=== PATIENT | male | born 1960 | race American Indian/Alaskan Native ===

== ENCOUNTER 2018-07-05 09:28 | Inpatient (IN) | payer SELFPAY ==
[2018-07-05] MEDS ORDERED: ZOSYN/NS 4.5GM/100ML 4.5 GM/100 ML VIAL IV ONE (10:41)
[2018-07-05] MEDS ORDERED: SUBLIMAZE IV ONE (10:41)
[2018-07-05] MEDS ORDERED: NACL 0.9% 1000 ML 1,000 ML IV ONE (10:41)
[2018-07-05] MEDS ORDERED: ZOFRAN IV ONE (10:41)
--- NOTE | 2018-07-05 10:43 | Emergency Department Report ---
HPI - General Chief Complaint: Extremity Injury, Upper Time Seen by Provider: 07/05/18 10:32 - HPI HPI: Room 6 The patient is a 58-year-old male presents with a chief complaint left hand pain and swelling. The patient states he is noticed pain and swelling to the dorsum of his left hand for the past 2 days. Any preceding trauma or seen any insect bites. Patient states the hand is continuing to swell. Patient admits to subjective fever at home. Patient denies previous episodes of left hand swelling. The patient gives his pain a score of 9/10. The patient states he is right-handed Location: Left hand Duration: 2 days Quality: Pain Severity:9/10 Modifying factors: [see above] Context: [see above] Mode of transportation: [not driving] ED Past Medical Hx - Past Medical History Hx Hypertension: Yes - Surgical History Hx Open Heart Surgery: Yes (3v CABG 2003) - Family History Family history: no significant - Social History Smoking Status: Current Every Day Smoker (1 pack per day) Substance Use Type: None (denies illicit drug use), Alcohol (rarely) ED Review of Systems ROS: Stated complaint: LT HAND PAIN/SWOLLEN Other details as noted in HPI Constitutional: fever (subjective) Eyes: denies: eye pain ENT: denies: throat pain Respiratory: no symptoms reported Cardiovascular: denies: chest pain Endocrine: no symptoms reported Gastrointestinal: denies: abdominal pain Musculoskeletal: joint swelling, myalgia Skin: rash, lesions Neurological: denies: headache Physical Exam - Physical Exam Vital Signs: Vital Signs 07/05/18 09:35 Temperature 97.8 F Pulse Rate 61 Respiratory 20 Rate Blood Pressure 163/91 O2 Sat by Pulse 100 Oximetry Physical Exam: GENERAL: The patient is well-developed well-nourished male sitting on stretcher not appear to be in acute distress. [] HEENT: Normocephalic. Atraumatic. Extraocular motions are intact. Patient has moist mucous membranes. NECK: Supple. Trachea midline CHEST/LUNGS: There is no respiratory distress noted. HEART/CARDIOVASCULAR: Regular. There is no tachycardia. Normal capillary refill fingers of left hand ABDOMEN: There is no abdominal distention. SKIN: There is marked edema and erythema of the left hand. There is no diaphoresis. NEURO: The patient is awake, alert, and oriented. The patient is cooperative. The patient has normal speech MUSCULOSKELETAL: There is no tenderness to palpation of the flexor tendons of the left hand. There is tenderness to palpation of the dorsum of the left hand LYMPH: There is tender left axillary lymphadenopathy ED Course Vital Signs 07/05/18 09:35 Temperature 97.8 F Pulse Rate 61 Respiratory 20 Rate Blood Pressure 163/91 O2 Sat by Pulse 100 Oximetry ED Medical Decision Making - Lab Data Result diagrams: 07/05/18 10:43 07/05/18 10:43 Laboratory Tests 07/05/18 07/05/18 07/05/18 10:43 10:43 10:43 WBC 10.5 RBC 4.99 Hgb 13.7 Hct 42.0 MCV 84 MCH 27 L MCHC 33 RDW 15.2 Plt Count 290 Lymph % (Auto) 20.3 [place] % (Auto) 8.4 H Eos % (Auto) 1.4 Baso % (Auto) 0.6 Lymph # 2.1 [place] # 0.9 H Eos # 0.2 Baso # 0.1 Seg Neutrophils % 69.3 Seg Neutrophils # 7.3 ESR PT 12.5 INR 0.88 APTT 26.2 Sodium 133 L Potassium 4.6 Chloride 93.6 L Carbon Dioxide 27 Anion Gap 17 BUN 8 L Creatinine 0.9 Estimated GFR > 60 BUN/Creatinine Ratio 9 Glucose 87 Calcium 9.6 C-Reactive Protein 07/05/18 07/05/18 10:43 10:43 WBC RBC Hgb Hct MCV MCH MCHC RDW Plt Count Lymph % (Auto) [place] % (Auto) Eos % (Auto) Baso % (Auto) Lymph # [place] # Eos # Baso # Seg Neutrophils % Seg Neutrophils # ESR 37 PT INR APTT Sodium Potassium Chloride Carbon Dioxide Anion Gap BUN Creatinine Estimated GFR BUN/Creatinine Ratio Glucose Calcium C-Reactive Protein 6.20 H - Radiology Data Radiology results: image reviewed (left hand x-ray) interpreted by me: Left hand x-ray-no radiopaque foreign bodies seen. No fracture seen - Differential Diagnosis cellulitis, hand infection Critical care attestation.: If time is entered above; I have spent that time in minutes in the direct care of this critically ill patient, excluding procedure time. ED Disposition Clinical Impression: Cellulitis of left hand, Left hand pain, Swelling of left hand Disposition: - OP ADMIT IP TO THIS HOSP Is pt being admited?: Yes Does the pt Need Aspirin: Yes Condition: Fair Time of Disposition: 11:34 (hospitalist paged (Dr Gan))
[2018-07-05 10:58] LABS: Basophils # (Auto) 0.1 K/mm3 (0.0-0.1); Basophils % (Auto) 0.6 % (0.0-1.8); Eosinophils # (Auto) 0.2 K/mm3 (0.0-0.4); Eosinophils % (Auto) 1.4 % (0.0-4.3); Hemoglobin 13.7 gm/dl (11.8-15.2); Lymphocytes # (Auto) 2.1 K/mm3 (1.2-5.4); Lymphocytes % (Auto) 20.3 % (13.4-35.0); Mean Corpuscular HGB Conc 33 % (32-34); Mean Corpuscular Volume 84 fl (84-94); Monocytes # (Auto) 0.9 K/mm3 (0.0-0.8); Monocytes % (Auto) 8.4 % (0.0-7.3); Platelet Count 290 K/mm3 (140-440); Red Blood Count 4.99 M/mm3 (3.65-5.03); Red Cell Distribution Width 15.2 % (13.2-15.2)
[2018-07-05 11:17] LABS: INR 0.88 (0.87-1.13)
[2018-07-05 11:18] LABS: Partial Thromboplastin Time 26.2 Sec. (24.2-36.6)
[2018-07-05 11:19] LABS: BUN/Creatinine Ratio 9; Blood Urea Nitrogen 8 mg/dL (9-20); Calcium 9.6 mg/dL (8.4-10.2); Hemolysis Index 5
[2018-07-05] MEDS ORDERED: ASPIRIN PO ONE (11:34)
[2018-07-05] MEDS ORDERED: VANCOMYCIN 1,250 MG in NACL 0.9% 500 ML 500 ML IV ONE (11:41)
--- NOTE | 2018-07-05 11:48 | XRay Report ---
LEFT HAND, 3 views: History: Left hand pain and swelling The bony architecture is intact. Bony alignment is normal. The joint spaces appear preserved. There is severe diffuse soft tissue swelling or edema. IMPRESSION: Soft tissue swelling. No acute osseous findings are identified.
[2018-07-05] MEDS: DILAUDID IV PRN ×2 (13:42→22:26)
--- NOTE | 2018-07-05 21:31 | Event Note ---
Date: 07/05/18 See dictated H/p in reports Cellulitis L Hand and forearm HTN HLD
[2018-07-06] MEDS ORDERED: TYLENOL PO PRN (02:45)
[2018-07-06] MEDS ORDERED: SODIUM CHLORIDE FLUSH SYRINGE 10 ML IV PRN (02:45)
[2018-07-06] MEDS ORDERED: ZOFRAN IV PRN (02:45)
[2018-07-06] MEDS ORDERED: NACL 0.9% 1000 ML 1,000 ML IV SCH (03:00)
--- NOTE | 2018-07-06 03:12 | History and Physical Report ---
CHIEF COMPLAINT: Left hand and left forearm swelling for 2 days. HISTORY OF PRESENT ILLNESS: The patient is a 58-year-old male with history of hypertension and hyperlipidemia, who comes in for left hand and left forearm swelling, painful. No trauma. No insect bites. Low grade fever at home. Pain is about 9 on a scale of 1-10. No precipitating or exacerbating factors. PAST MEDICAL HISTORY: Significant for: 1. Hypertension. 2. Hyperlipidemia. PAST SURGICAL HISTORY: CABG in 2003. FAMILY HISTORY: Hypertension. SOCIAL HISTORY: Smokes over a pack a day. REVIEW OF SYSTEMS: Significant for left arm swelling, especially the dorsum of the hand and left forearm. Otherwise, review of systems negative. PHYSICAL EXAMINATION: GENERAL: Middle-aged male, cooperative during examination. VITAL SIGNS: Blood pressure 163/91, temperature 97.8, pulse is 61, respirations 20. HEENT: Unremarkable. Pupils equal and reactive. NECK: Supple, no lymphadenopathy, no thyromegaly. LUNGS: Clear to auscultation and percussion. Good air entry. CARDIOVASCULAR: S1, S2 heard. No gallop, no murmur, no rub. Apical impulse in left fifth intercostal space and midclavicular line. ABDOMEN: Soft and benign. No hepatosplenomegaly. No guarding, no rigidity. Hernial orifices are normal. EXTREMITIES: Left hand swollen and tender to touch. Slightly warm. Dorsum of the hand and the left forearm are swollen. CENTRAL NERVOUS SYSTEM: Alert and oriented x 4. Nonfocal exam. SKIN: Normal. LABORATORY DATA: White count is 10,500, H and H is 13.7 and 42.0, platelet count is 290,000. Sodium is 133, potassium is 4.6, chloride is 93.6, BUN and creatinine is 18 and 0.9. C-reactive protein is 6.2. RADIOLOGICAL DATA: Hand x-ray is soft tissue swelling, no acute osseous findings. ASSESSMENT AND PLAN: 1. Left cellulitis. The patient initiated on IV clindamycin. ID consult if necessary. 2. Hypertension. Continue antihypertensives. 3. Hyperlipidemia. Continue statins. 4. Hyponatremia. IV fluids for now. 5. Deep venous thrombosis prophylaxis, Lovenox 40 mg subcutaneous daily. JOB# [id number] VSM/NTS
[2018-07-06] MEDS: DILAUDID IV PRN ×3 (06:20→14:08)
[2018-07-06] MEDS: CLEOCIN 900 MG/50 mL 900 MG/50 ML BAG IV SCH ×2 (06:43→14:09)
[2018-07-06] MEDS: NORVASC PO SCH (09:30)
[2018-07-06] MEDS: PEPCID PO SCH ×2 (09:32→22:09)
[2018-07-06 13:20] LABS: Basophils # (Auto) 0.1 K/mm3 (0.0-0.1); Basophils % (Auto) 0.5 % (0.0-1.8); Eosinophils # (Auto) 0.1 K/mm3 (0.0-0.4); Eosinophils % (Auto) 0.7 % (0.0-4.3); Hematocrit 42.9 % (35.5-45.6); Hemoglobin 14.4 gm/dl (11.8-15.2); Lymphocytes # (Auto) 2.1 K/mm3 (1.2-5.4); Lymphocytes % (Auto) 17.3 % (13.4-35.0); Mean Corpuscular HGB Conc 34 % (32-34); Mean Corpuscular Volume 83 fl (84-94); Monocytes # (Auto) 0.6 K/mm3 (0.0-0.8); Monocytes % (Auto) 4.8 % (0.0-7.3); Platelet Count 300 K/mm3 (140-440); Red Blood Count 5.17 M/mm3 (3.65-5.03); Red Cell Distribution Width 14.8 % (13.2-15.2)
[2018-07-06 13:40] LABS: BUN/Creatinine Ratio 10; Blood Urea Nitrogen 9 mg/dL (9-20); Calcium 9.9 mg/dL (8.4-10.2); Hemolysis Index 12
--- NOTE | 2018-07-06 13:50 | Vascular Lab Report ---
FINAL REPORT EXAM: VL ARTERIAL DUPLEX UE LT HISTORY: swelling and tenderness COMPARISON: None. TECHNIQUE: Duplex Doppler ultrasound of the arteries of the left upper extremity was performed. FINDINGS: The arteries of the left upper extremity demonstrate normal waveforms and are patent. There is no vis ualized stenosis. There are low resistive indices throughout the visualized arteries. Peak systolic velocities (centimeters/second) are as follows: Left subclavian artery, proximal: 256.5 Left subclavian artery, mid: 106.6 Left subclavian artery, distal: 72 Left axillary artery: 92.5 Left brachial artery: 105.6 Left ulnar artery: 83.9 Left radial artery: 97.5 IMPRESSION: Mildly elevated peak systolic velocity of the left subclavian artery that may suggest stenosis, howev er no visualized stenosis is identified. Otherwise normal ultrasound of the arteries of the left upper extremity.
[2018-07-06] MEDS: SODIUM CHLORIDE FLUSH SYRINGE 10 ML IV SCH ×2 (14:09→22:10)
--- NOTE | 2018-07-06 14:16 | Cat Scan Report ---
CT UPPER EXTREMITY LEFT WITHOUT CONTRAST History: Swelling and tenderness Technique: Helical CT without IV contrast. Findings: There is diffuse nonspecific subcutaneous edema. No obvious foreign body, soft tissue gas or abscess is appreciated on noncontrast CT. The bony structures are intact. No erosive joint pathology is appreciated. Impression: Nonspecific soft tissue swelling. Consider cellulitis.
--- NOTE | 2018-07-06 15:48 | Progress Note ---
Assessment and Plan Assessment and plan: Cellulitis of the left hand - CT showed soft tissue swelling, arterial doppler showed no obstruction - Patient is on clindamycin - ID consulted Leukocytosis - Due to the above Disposition - Patient needs to be inpatient, for pain control and follow-up of swelling and tenderness History Interval history: Patient was seen and evaluated this morning, patient's complaining severe tenderness and tingling of the left hand. Hospitalist Physical - Physical exam Narrative exam: Not in cardiopulmonary distress. The patient appeared well nourished and normally developed. Vital signs as documented. Head exam is unremarkable. No scleral icterus . Neck is without jugular venous distension, thyromegaly, or carotid bruits. Lungs are clear to auscultation. Cardiac exam reveals regular rate and Rhythm. First and second heart sounds normal. No murmurs, rubs or gallops. Abdominal exam reveals normal bowel sounds, no masses, no organomegaly and no aortic enlargement. Extremities Swelling and tenderness of the left hand. 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 No focal weakness. - Constitutional Vitals: Temp Pulse Resp BP Pulse Ox 99.0 F 66 20 142/73 95 07/06/18 12:03 07/06/18 09:30 07/06/18 12:03 07/06/18 12:03 07/06/18 06:09 Results - Labs CBC & Chem 7: 07/06/18 13:04 07/06/18 13:04 Labs: Laboratory Last Values WBC 12.3 K/mm3 (4.5-11.0) H 07/06/18 13:04 RBC 5.17 M/mm3 (3.65-5.03) H 07/06/18 13:04 Hgb 14.4 gm/dl (11.8-15.2) 07/06/18 13:04 Hct 42.9 % (35.5-45.6) 07/06/18 13:04 MCV 83 fl (84-94) L 07/06/18 13:04 MCH 28 pg (28-32) 07/06/18 13:04 MCHC 34 % (32-34) 07/06/18 13:04 RDW 14.8 % (13.2-15.2) 07/06/18 13:04 Plt Count 300 K/mm3 (140-440) 07/06/18 13:04 Lymph % (Auto) 17.3 % (13.4-35.0) 07/06/18 13:04 [place] % (Auto) 4.8 % (0.0-7.3) 07/06/18 13:04 Eos % (Auto) 0.7 % (0.0-4.3) 07/06/18 13:04 Baso % (Auto) 0.5 % (0.0-1.8) 07/06/18 13:04 Lymph # 2.1 K/mm3 (1.2-5.4) 07/06/18 13:04 [place] # 0.6 K/mm3 (0.0-0.8) 07/06/18 13:04 Eos # 0.1 K/mm3 (0.0-0.4) 07/06/18 13:04 Baso # 0.1 K/mm3 (0.0-0.1) 07/06/18 13:04 Seg Neutrophils % 76.7 % (40.0-70.0) H 07/06/18 13:04 Seg Neutrophils # 9.4 K/mm3 (1.8-7.7) H 07/06/18 13:04 ESR 37 mm/Hr (0-20) 07/05/18 10:43 PT 12.5 Sec. (12.2-14.9) 07/05/18 10:43 INR 0.88 (0.87-1.13) 07/05/18 10:43 APTT 26.2 Sec. (24.2-36.6) 07/05/18 10:43 Sodium 132 mmol/L (137-145) L 07/06/18 13:04 Potassium 4.3 mmol/L (3.6-5.0) 07/06/18 13:04 Chloride 95.3 mmol/L (98-107) L 07/06/18 13:04 Carbon Dioxide 22 mmol/L (22-30) 07/06/18 13:04 Anion Gap 19 mmol/L 07/06/18 13:04 BUN 9 mg/dL (9-20) 07/06/18 13:04 Creatinine 0.9 mg/dL (0.8-1.5) 07/06/18 13:04 Estimated GFR > 60 ml/min 07/06/18 13:04 BUN/Creatinine Ratio 10 % 07/06/18 13:04 Glucose 150 mg/dL (75-100) H 07/06/18 13:04 Hemoglobin A1c 5.9 % (4-6) 07/05/18 10:43 Calcium 9.9 mg/dL (8.4-10.2) 07/06/18 13:04 C-Reactive Protein 6.20 mg/dL (0.00-1.30) H 07/05/18 10:43 Nutrition/Malnutrition Assess - Dietary Evaluation Nutrition/Malnutrition Findings: Nutrition Notes Start: 07/06/18 08:00 Freq: Status: Active Protocol: Document 07/06/18 08:01 ER (Rec: 07/06/18 08:02 ER [id number]) Co-Sign 07/06/18 08:01 LP Nutrition Notes 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 Davin score 22. No further assessment needed at this time . Nutrition Intervention Revisit per MD consult or patient Sign Off request:
[2018-07-06] MEDS: PERCOCET 5/325 PO PRN ×2 (16:16→22:09)
--- NOTE | 2018-07-06 16:26 | Consultation ---
History of Present Illness - Reason for Consult Consult date: 07/06/18 Left hand cellulitis Requesting physician: DAVID MCINTYRE - History of Present Illness The patient is a 58-year-old male with hypertension, hyperlipidemia who presented to the emergency room yesterday with complaints of left hand swelling and pain that began about 3 days prior to admission. He denies any associated trauma. The pain got significantly worse and hence he came to the hospital. He also reports some low-grade temperatures. He denies any mosquito bite, insect bite or spider bite. He denies any similar infections in the past. He underwent CT scanning without contrast which showed findings consistent with cellulitis. He received IV Zosyn and vancomycin in the ER and then was continued on IV clindamycin. Infectious diseases was consulted for further management. The patient continues to have moderately severe left hand pain and swelling. He denies any nausea, vomiting or diarrhea. He had a low-grade temperature here. Denies any urinary burning. Patient smokes cigarettes, quit alcohol a while ago, admits to IV drug use, last use was several months ago. He denies any direct skin popping or this current infection being related to IVDU. 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 Review of Systems: General: no chills or rigors. low grade temp + HEENT: no new visual disturbance Respiratory: No cough, sputum, hemoptysis or shortness of breath Cardiovascular: No chest pain, syncope Gastrointestinal: No nausea, vomiting or diarrhea Genitourinary: No dysuria or hematuria Musculoskeletal: No new or worsening neck pain or back pain. Left hand pain. Neurologic: No headaches, seizures Hematologic: No easy bruising or bleeding Endocrine: No night sweats or acute weight loss Skin: negative for rash, jaundice Psychiatric: No suicidal or homicidal ideation Medications and Allergies Allergies Allergy/AdvReac Type Severity Reaction Status Date / Time No Known Allergies Allergy Unverified 07/05/18 09:30 Home Medications Medication Instructions Recorded Confirmed Last Taken Type Simvastatin [Zocor] 20 mg PO QHS 07/05/18 07/05/18 Unknown History amLODIPine [Norvasc] 10 mg PO DAILY 07/05/18 07/05/18 Unknown History Active Meds: Active Medications Acetaminophen (Tylenol) 650 mg PO Q4H PRN PRN Reason: Pain MILD(1-3)/Fever >100.5/GARCIA Amlodipine Besylate (Norvasc) 10 mg PO DAILY [facility] Last Admin: 07/06/18 09:30 Dose: 10 mg Documented by: Enoxaparin Sodium (Lovenox) 40 mg SUB-Q QDAY@2200 [facility] Famotidine (Pepcid) 20 mg PO BID [facility] Last Admin: 07/06/18 09:32 Dose: 20 mg Documented by: Clindamycin HCl (Cleocin 900 Mg/50 Ml) 900 mg in 50 mls @ 100 mls/hr IV Q8HR [facility]; Protocol Last Admin: 07/06/18 14:09 Dose: 100 mls/hr Documented by: Sodium Chloride (Nacl 0.9% 1000 Ml) 1,000 mls @ 75 mls/hr IV DIRECT [facility] Ondansetron HCl (Zofran) 4 mg IV Q8H PRN PRN Reason: Nausea And Vomiting Oxycodone/Acetaminophen (Percocet 5/325) 2 tab PO Q6H PRN PRN Reason: Pain, Moderate (4-6) Last Admin: 07/06/18 16:16 Dose: 2 tab Documented by: Pravastatin Sodium (Pravachol) 40 mg PO QHS [facility] Sodium Chloride (Sodium Chloride Flush Syringe 10 Ml) 10 ml IV PRN PRN PRN Reason: LINE FLUSH Sodium Chloride (Sodium Chloride Flush Syringe 10 Ml) 10 ml IV BID [facility] Last Admin: 07/06/18 14:09 Dose: 10 ml Documented by: Physical Examination - Physical Exam Narrative exam: Physical Exam: Constitutional: Alert, cooperative. No acute distress Head, Ears, Nose: Normocephalic, atraumatic. External ears, nose normal Eyes: Conjunctivae/corneas clear. No icterus. No ptosis. Neck: Supple, no meningeal signs Oral: dentition poor, no thrush Cardiovascular: S1, S2 normal. Respiratory: Good air entry, clear to auscultation bilaterally GI: Soft, non-tender; bowel sounds normal. No peritoneal signs Musculoskeletal: No pedal edema, no cyanosis. Left hand swelling, severe tenderness and warmth, no open area or fluctuant swellings Skin: No rash or abscess Hem/Lymphatic: No palpable cervical or supraclavicular nodes. No lymphangitis Psych: Mood ok. Affect normal Neurological: Awake, alert, oriented. No gross abnormality - Constitutional Vitals: Vital Signs Temp Pulse Resp BP Pulse Ox 99.0 F 66 20 142/73 95 07/06/18 12:03 07/06/18 09:30 07/06/18 12:03 07/06/18 12:03 07/06/18 06:09 Temperature -Last 24 Hours Temperature 99.0 F Temperature 98.7 F Temperature 99.6 F Temperature 98.6 F Results - Labs CBC & Chem 7: 07/06/18 13:04 07/06/18 13:04 Labs: Abnormal lab results 07/06/18 07/06/18 Range/Units 13:04 13:04 WBC 12.3 H (4.5-11.0) K/mm3 RBC 5.17 H (3.65-5.03) M/mm3 MCV 83 L (84-94) fl Seg Neutrophils % 76.7 H (40.0-70.0) % Seg Neutrophils # 9.4 H (1.8-7.7) K/mm3 Sodium 132 L (137-145) mmol/L Chloride 95.3 L (98-107) mmol/L Glucose 150 H (75-100) mg/dL Assessment and Plan Cultures: 07/05/2018 and blood cultures: No growth A/P: 58-year-old male with hypertension, hyperlipidemia, admitted with: #1 Severe left hand cellulitis: Etiology unclear, denies any direct trauma. Patient does have a history of prior IVDU, but denies any direct skin popping or current infection being related to IVDU. CT without contrast showed nonspecific cellulitis. Would DC clindamycin and start him on IV vancomycin. #2 Polysubstance use: Patient agreeable to get HIV and hepatitis C screening. Reports last IVDU was several months ago. Recs: Discontinued clindamycin Started IV vancomycin, target vancomycin trough between 10-15 mg per mL HIV and hep C screening ordered Limb elevation to help with edema control MD [facility] C: [phone] O: [phone] F: [phone]
[2018-07-06] MEDS ORDERED: VANCOMYCIN PHARMACY TO DOSE IV SCH (17:00)
[2018-07-06] MEDS ORDERED: VANCOMYCIN 1,750 MG in NACL 0.9% 500 ML 500 ML IV ONE (18:00)
[2018-07-06] MEDS ORDERED: NON-FORMULARY (Simvastatin [Zocor] 20 MG) PO SCH (22:00)
[2018-07-06] MEDS: LOVENOX SUB-Q SCH (22:09)
[2018-07-06] MEDS: PRAVACHOL PO SCH (22:09)
[2018-07-07] MEDS: PERCOCET 5/325 PO PRN ×3 (03:21→19:37)
[2018-07-07 05:31] LABS: Alanine Aminotransferase 19 units/L (7-56); Albumin 3.4 g/dL (3.9-5); BUN/Creatinine Ratio 11; Blood Urea Nitrogen 10 mg/dL (9-20); Calcium 9.3 mg/dL (8.4-10.2); Hemolysis Index 1
[2018-07-07] MEDS: VANCOMYCIN 1,250 MG in NACL 0.9% 250ML 250 ML IV SCH ×2 (06:04→16:01)
[2018-07-07 07:54] LABS: Basophils # (Auto) 0.1 K/mm3 (0.0-0.1); Basophils % (Auto) 0.7 % (0.0-1.8); Eosinophils # (Auto) 0.1 K/mm3 (0.0-0.4); Eosinophils % (Auto) 0.9 % (0.0-4.3); Hematocrit 43.5 % (35.5-45.6); Hemoglobin 14.2 gm/dl (11.8-15.2); Lymphocytes # (Auto) 2.6 K/mm3 (1.2-5.4); Lymphocytes % (Auto) 23.4 % (13.4-35.0); Mean Corpuscular HGB Conc 33 % (32-34); Mean Corpuscular Volume 83 fl (84-94); Monocytes # (Auto) 0.7 K/mm3 (0.0-0.8); Platelet Count 311 K/mm3 (140-440); Red Blood Count 5.27 M/mm3 (3.65-5.03); Red Cell Distribution Width 14.5 % (13.2-15.2)
[2018-07-07] MEDS: NORVASC PO SCH (10:10)
[2018-07-07] MEDS: PEPCID PO SCH ×2 (10:10→21:39)
[2018-07-07] MEDS: SODIUM CHLORIDE FLUSH SYRINGE 10 ML IV SCH ×2 (10:11→21:39)
--- NOTE | 2018-07-07 13:17 | Progress Note ---
Assessment and Plan Cultures: 07/05/2018 and blood cultures: No growth at 48 hrs A/P: 58-year-old male with hypertension, hyperlipidemia, admitted with: #1 Severe left hand cellulitis: Etiology unclear, denies any direct trauma. Patient does have a history of prior IVDU, but denies any direct skin popping or current infection being related to IVDU. CT without contrast showed nonspecific cellulitis. slowly improving on IV vancomycin. #2 Polysubstance use: HIV negative and hepatitis C positive Reports last IVDU was several months ago. #3 Chronic Hepatitis C: patient was informed about this result, advised need to quit IVDU and to follow up outpatient with either GI or ID clinic to discuss treatment options. Recs: continue IV vancomycin, target vancomycin trough between 10-15 mg per mL HIV and hep C screening ordered Limb elevation to help with edema control discharge over the next 1-2 days if he continues to improve, would recommend PO Keflex 500 mg QID + PO Bactrim DS 2 tabs BID x 7 days Abraham De Los Santos MD [facility] C: [phone] O: [phone] F: [phone] Subjective Date of service: 07/07/18 Interval history: No fever. Left hand swelling is improving, pain also improving. I informed patient about his Hep C Ab being positive. Objective - Exam Narrative Exam: Physical Exam: Constitutional: Alert, cooperative. No acute distress Head, Ears, Nose: Normocephalic, atraumatic. External ears, nose normal Eyes: Conjunctivae/corneas clear. No icterus. No ptosis. Neck: Supple, no meningeal signs Oral: dentition poor, no thrush Cardiovascular: S1, S2 normal. Respiratory: Good air entry, clear to auscultation bilaterally GI: Soft, non-tender; bowel sounds normal. No peritoneal signs Musculoskeletal: No pedal edema, no cyanosis. Left hand swelling, moderate tenderness and warmth, no open area or fluctuant swellings Skin: No rash or abscess Hem/Lymphatic: No palpable cervical or supraclavicular nodes. No lymphangitis Psych: Mood ok. Affect normal Neurological: Awake, alert, oriented. No gross abnormality - Constitutional Vitals: Vital Signs Temp Pulse Resp BP Pulse Ox 98.6 F 58 L 16 158/81 97 07/07/18 12:20 07/07/18 12:20 07/07/18 12:20 07/07/18 12:20 07/07/18 12:20 Temperature -Last 24 Hours Temperature 98.6 F Temperature 98.5 F Temperature 99.1 F Temperature 98.8 F - Labs CBC & Chem 7: 07/07/18 07:36 07/07/18 04:19 Labs: Abnormal lab results 07/06/18 07/06/18 07/07/18 Range/Units 13:04 13:04 04:19 WBC 12.3 H (4.5-11.0) K/mm3 RBC 5.17 H (3.65-5.03) M/mm3 MCV 83 L (84-94) fl MCH (28-32) pg Seg Neutrophils % 76.7 H (40.0-70.0) % Seg Neutrophils # 9.4 H (1.8-7.7) K/mm3 Sodium 132 L 134 L (137-145) mmol/L Chloride 95.3 L (98-107) mmol/L Glucose 150 H 102 H (75-100) mg/dL Albumin 3.4 L (3.9-5) g/dL Hepatitis C Antibody (NonReactive) 07/07/18 07/07/18 Range/Units 04:19 07:36 WBC (4.5-11.0) K/mm3 RBC 5.27 H (3.65-5.03) M/mm3 MCV 83 L (84-94) fl MCH 27 L (28-32) pg Seg Neutrophils % (40.0-70.0) % Seg Neutrophils # (1.8-7.7) K/mm3 Sodium (137-145) mmol/L Chloride (98-107) mmol/L Glucose (75-100) mg/dL Albumin (3.9-5) g/dL Hepatitis C Antibody Reactive A (NonReactive)
[2018-07-07] MEDS: PRAVACHOL PO SCH (21:38)
[2018-07-07] MEDS: LOVENOX SUB-Q SCH (21:39)
[2018-07-08] MEDS: PERCOCET 5/325 PO PRN ×4 (02:05→22:36)
[2018-07-08] MEDS: VANCOMYCIN 1,250 MG in NACL 0.9% 250ML 250 ML IV SCH ×2 (04:37→16:56)
[2018-07-08] MEDS: PEPCID PO SCH ×2 (09:12→22:35)
[2018-07-08] MEDS: NORVASC PO SCH (09:13)
--- NOTE | 2018-07-08 10:50 | Progress Note ---
Assessment and Plan Assessment and plan: Cellulitis of the left hand - CT showed soft tissue swelling, arterial doppler showed no obstruction - Patient is on Vancomycin - ID consult appreciated Leukocytosis - Due to the above Disposition - Patient needs to be inpatient, for pain control and follow-up of swelling and tenderness. History Interval history: Patient was seen and evaluated this morning, patient's complaining severe tenderness and tingling of the left hand. Hospitalist Physical - Physical exam Narrative exam: Not in cardiopulmonary distress. The patient appeared well nourished and normally developed. Vital signs as documented. Head exam is unremarkable. No scleral icterus . Neck is without jugular venous distension, thyromegaly, or carotid bruits. Lungs are clear to auscultation. Cardiac exam reveals regular rate and Rhythm. First and second heart sounds normal. No murmurs, rubs or gallops. Abdominal exam reveals normal bowel sounds, no masses, no organomegaly and no aortic enlargement. Extremities Swelling and tenderness of the left hand. 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 No focal weakness. - Constitutional Vitals: Temp Pulse Resp BP Pulse Ox 98.1 F 66 16 152/89 97 07/08/18 05:46 07/08/18 09:13 07/08/18 05:46 07/08/18 09:13 07/08/18 05:46 Results - Labs CBC & Chem 7: 07/07/18 07:36 07/07/18 04:19 Labs: Laboratory Last Values WBC 10.9 K/mm3 (4.5-11.0) 07/07/18 07:36 RBC 5.27 M/mm3 (3.65-5.03) H 07/07/18 07:36 Hgb 14.2 gm/dl (11.8-15.2) 07/07/18 07:36 Hct 43.5 % (35.5-45.6) 07/07/18 07:36 MCV 83 fl (84-94) L 07/07/18 07:36 MCH 27 pg (28-32) L 07/07/18 07:36 MCHC 33 % (32-34) 07/07/18 07:36 RDW 14.5 % (13.2-15.2) 07/07/18 07:36 Plt Count 311 K/mm3 (140-440) 07/07/18 07:36 Lymph % (Auto) 23.4 % (13.4-35.0) 07/07/18 07:36 [place] % (Auto) 6.0 % (0.0-7.3) 07/07/18 07:36 Eos % (Auto) 0.9 % (0.0-4.3) 07/07/18 07:36 Baso % (Auto) 0.7 % (0.0-1.8) 07/07/18 07:36 Lymph # 2.6 K/mm3 (1.2-5.4) 07/07/18 07:36 Wise # 0.7 K/mm3 (0.0-0.8) 07/07/18 07:36 Eos # 0.1 K/mm3 (0.0-0.4) 07/07/18 07:36 Baso # 0.1 K/mm3 (0.0-0.1) 07/07/18 07:36 Seg Neutrophils % 69.0 % (40.0-70.0) 07/07/18 07:36 Seg Neutrophils # 7.5 K/mm3 (1.8-7.7) 07/07/18 07:36 ESR 37 mm/Hr (0-20) 07/05/18 10:43 PT 12.5 Sec. (12.2-14.9) 07/05/18 10:43 INR 0.88 (0.87-1.13) 07/05/18 10:43 APTT 26.2 Sec. (24.2-36.6) 07/05/18 10:43 Sodium 134 mmol/L (137-145) L 07/07/18 04:19 Potassium 4.0 mmol/L (3.6-5.0) 07/07/18 04:19 Chloride 99.1 mmol/L (98-107) 07/07/18 04:19 Carbon Dioxide 23 mmol/L (22-30) 07/07/18 04:19 Anion Gap 16 mmol/L 07/07/18 04:19 BUN 10 mg/dL (9-20) 07/07/18 04:19 Creatinine 0.9 mg/dL (0.8-1.5) 07/07/18 04:19 Estimated GFR > 60 ml/min 07/07/18 04:19 BUN/Creatinine Ratio 11 % 07/07/18 04:19 Glucose 102 mg/dL (75-100) H 07/07/18 04:19 Hemoglobin A1c 5.9 % (4-6) 07/05/18 10:43 Calcium 9.3 mg/dL (8.4-10.2) 07/07/18 04:19 Total Bilirubin 0.30 mg/dL (0.1-1.2) 07/07/18 04:19 AST 13 units/L (5-40) 07/07/18 04:19 ALT 19 units/L (7-56) 07/07/18 04:19 Alkaline Phosphatase 76 units/L (35-129) 07/07/18 04:19 C-Reactive Protein 6.20 mg/dL (0.00-1.30) H 07/05/18 10:43 Total Protein 7.5 g/dL (6.3-8.2) 07/07/18 04:19 Albumin 3.4 g/dL (3.9-5) L 07/07/18 04:19 Albumin/Globulin Ratio 0.8 % 07/07/18 04:19 Hepatitis C Antibody Reactive (NonReactive) A 07/07/18 04:19 HIV 1&2 Antibody Rapid Non react (Non React) 07/07/18 04:19 HIV P24 Antigen Non react (Non React) 07/07/18 04:19 Nutrition/Malnutrition Assess - Dietary Evaluation Nutrition/Malnutrition Findings: Nutrition Notes Start: 07/06/18 08:00 Freq: Status: Active Protocol: Document 07/06/18 08:01 ER (Rec: 07/06/18 08:02 ER [id number]) Co-Sign 07/06/18 08:01 LP Nutrition Notes Need for Assessment generated from: 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 Davin score 22. No further assessment needed at this time . Nutrition Intervention Revisit per MD consult or patient Sign Off request:
--- NOTE | 2018-07-08 10:53 | Progress Note ---
Assessment and Plan Assessment and plan: Cellulitis of the left hand - CT showed soft tissue swelling, arterial doppler showed no obstruction - Swelling and tenderness getting better - Patient is on Vancomycin - ID consult appreciated Leukocytosis - Due to the above Disposition - Patient needs to be inpatient, for pain control and follow-up of swelling and tenderness. - Possible DC tomorrow - Will get ID input for O/P antibiotic choice. History Interval history: Patient was seen and evaluated this morning, patient's left hand swelling and tenderness getting better. Hospitalist Physical - Physical exam Narrative exam: Not in cardiopulmonary distress. The patient appeared well nourished and normally developed. Vital signs as documented. Head exam is unremarkable. No scleral icterus . Neck is without jugular venous distension, thyromegaly, or carotid bruits. Lungs are clear to auscultation. Cardiac exam reveals regular rate and Rhythm. First and second heart sounds normal. No murmurs, rubs or gallops. Abdominal exam reveals normal bowel sounds, no masses, no organomegaly and no aortic enlargement. Extremities Swelling and tenderness of the left hand. 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 No focal weakness. - Constitutional Vitals: Temp Pulse Resp BP Pulse Ox 98.1 F 66 16 152/89 97 07/08/18 05:46 07/08/18 09:13 07/08/18 05:46 07/08/18 09:13 07/08/18 05:46 Results - Labs CBC & Chem 7: 07/07/18 07:36 07/07/18 04:19 Labs: Laboratory Last Values WBC 10.9 K/mm3 (4.5-11.0) 07/07/18 07:36 RBC 5.27 M/mm3 (3.65-5.03) H 07/07/18 07:36 Hgb 14.2 gm/dl (11.8-15.2) 07/07/18 07:36 Hct 43.5 % (35.5-45.6) 07/07/18 07:36 MCV 83 fl (84-94) L 07/07/18 07:36 MCH 27 pg (28-32) L 07/07/18 07:36 MCHC 33 % (32-34) 07/07/18 07:36 RDW 14.5 % (13.2-15.2) 07/07/18 07:36 Plt Count 311 K/mm3 (140-440) 07/07/18 07:36 Lymph % (Auto) 23.4 % (13.4-35.0) 07/07/18 07:36 [place] % (Auto) 6.0 % (0.0-7.3) 07/07/18 07:36 Eos % (Auto) 0.9 % (0.0-4.3) 07/07/18 07:36 Baso % (Auto) 0.7 % (0.0-1.8) 07/07/18 07:36 Lymph # 2.6 K/mm3 (1.2-5.4) 07/07/18 07:36 [place] # 0.7 K/mm3 (0.0-0.8) 07/07/18 07:36 Eos # 0.1 K/mm3 (0.0-0.4) 07/07/18 07:36 Baso # 0.1 K/mm3 (0.0-0.1) 07/07/18 07:36 Seg Neutrophils % 69.0 % (40.0-70.0) 07/07/18 07:36 Seg Neutrophils # 7.5 K/mm3 (1.8-7.7) 07/07/18 07:36 ESR 37 mm/Hr (0-20) 07/05/18 10:43 PT 12.5 Sec. (12.2-14.9) 07/05/18 10:43 INR 0.88 (0.87-1.13) 07/05/18 10:43 APTT 26.2 Sec. (24.2-36.6) 07/05/18 10:43 Sodium 134 mmol/L (137-145) L 07/07/18 04:19 Potassium 4.0 mmol/L (3.6-5.0) 07/07/18 04:19 Chloride 99.1 mmol/L (98-107) 07/07/18 04:19 Carbon Dioxide 23 mmol/L (22-30) 07/07/18 04:19 Anion Gap 16 mmol/L 07/07/18 04:19 BUN 10 mg/dL (9-20) 07/07/18 04:19 Creatinine 0.9 mg/dL (0.8-1.5) 07/07/18 04:19 Estimated GFR > 60 ml/min 07/07/18 04:19 BUN/Creatinine Ratio 11 % 07/07/18 04:19 Glucose 102 mg/dL (75-100) H 07/07/18 04:19 Hemoglobin A1c 5.9 % (4-6) 07/05/18 10:43 Calcium 9.3 mg/dL (8.4-10.2) 07/07/18 04:19 Total Bilirubin 0.30 mg/dL (0.1-1.2) 07/07/18 04:19 AST 13 units/L (5-40) 07/07/18 04:19 ALT 19 units/L (7-56) 07/07/18 04:19 Alkaline Phosphatase 76 units/L (35-129) 07/07/18 04:19 C-Reactive Protein 6.20 mg/dL (0.00-1.30) H 07/05/18 10:43 Total Protein 7.5 g/dL (6.3-8.2) 07/07/18 04:19 Albumin 3.4 g/dL (3.9-5) L 07/07/18 04:19 Albumin/Globulin Ratio 0.8 % 07/07/18 04:19 Hepatitis C Antibody Reactive (NonReactive) A 07/07/18 04:19 HIV 1&2 Antibody Rapid Non react (Non React) 07/07/18 04:19 HIV P24 Antigen Non react (Non React) 07/07/18 04:19 Nutrition/Malnutrition Assess - Dietary Evaluation Nutrition/Malnutrition Findings: Nutrition Notes Start: 07/06/18 08:00 Freq: Status: Active Protocol: Document 07/06/18 08:01 ER (Rec: 07/06/18 08:02 ER [id number]) Co-Sign 07/06/18 08:01 LP Nutrition Notes 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 Davin score 22. No further assessment needed at this time . Nutrition Intervention Revisit per MD consult or patient Sign Off request:
[2018-07-08] MEDS: SODIUM CHLORIDE FLUSH SYRINGE 10 ML IV SCH ×2 (11:32→22:36)
[2018-07-08] MEDS ORDERED: APRESOLINE IV PRN (22:00)
[2018-07-08] MEDS: LOVENOX SUB-Q SCH (22:35)
[2018-07-08] MEDS: PRAVACHOL PO SCH (22:35)
[2018-07-09] MEDS: PERCOCET 5/325 PO PRN ×2 (06:46→12:19)
[2018-07-09] MEDS: VANCOMYCIN 1,250 MG in NACL 0.9% 250ML 250 ML IV SCH (06:50)
--- NOTE | 2018-07-09 09:49 | Discharge Summary ---
Providers - Providers Date of Admission: 07/05/18 11:39 Attending physician: DAVID MCINTYRE MD 07/06/18 08:37 Consult to Physician [CONS] Routine Comment: Consulting Provider: AYE MARTINEZ Physician Instructions: Reason For Exam: cellulitis of the left hand [facility] Reason for admission: left hand cellulitis Condition: Stable Pertinent studies: CT of the left hand cellulitis of the left hand, no abscess or bony involvement Doppler ultrasound of the left upper extremity noted arteries were patent Hospital course: 58-year-old male was presented to the emergency department with complaints of severe pain and swelling both the left-hand of 4 days duration. Patient denied trauma, insect bite, fever, chills. He was evaluated in the emergency department and started with IV antibiotics for cellulitis and admitted to the floor. CT showed cellulitis no abscess or bony involvement, arterial duplex shows patent arteries. ID was consulted and changed antibiotics to vancomycin. The pain was uncontrollable and swelling was bad and that is why the patient was admitted and stayed for a few days. Patient's hand pain and swelling gets better and discharged home on by mouth Keflex and Bactrim. ID gave the prescription for antibiotics. I have Given Percocet for the pain. ID wants to see. The patient in 1-2 weeks in the office. Patient was hemodynamically stable at the time of discharge. Disposition: TO HOME OR SELFCARE Time spent for discharge: 32 weeks - Discharge Diagnoses (1) Cellulitis of left hand Status: Acute (2) Left hand pain Status: Acute (3) Swelling of left hand Status: Acute (4) Hypertension Status: Acute Core Measure Documentation - Palliative Care Palliative Care/ Comfort Measures: Not Applicable - Core Measures Any of the following diagnoses?: none Exam - Physical Exam Narrative exam: Not in cardiopulmonary distress. The patient appeared well nourished and normally developed. Vital signs as documented. Head exam is unremarkable. No scleral icterus . Neck is without jugular venous distension, thyromegaly, or carotid bruits. Lungs are clear to auscultation. Cardiac exam reveals regular rate and Rhythm. First and second heart sounds normal. No murmurs, rubs or gallops. Abdominal exam reveals normal bowel sounds, no masses, no organomegaly and no aortic enlargement. Extremities Swelling and tenderness of the left hand improved from admission condition. 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 No focal weakness. - Constitutional Vitals: Temp Pulse Resp BP Pulse Ox 98.1 F 71 16 172/79 99 07/08/18 17:22 07/08/18 17:22 07/09/18 06:46 07/08/18 17:59 07/08/18 17:22 Plan Activity: no restrictions Weight Bearing Status: Full Weight Bearing Diet: low salt Follow up with: JAE FISHMAN MD [Primary Care Provider] - 7 Days Prescriptions: cephALEXin [Keflex] 500 mg PO Q6HR 7 Days #28 capsule Oxycodone HCl/Acetaminophen [Percocet 10/325 mg] 1 each PO Q6HR PRN #15 tablet PRN Reason: Pain Sulfamethoxazole/Trimethoprim [Bactrim DS TAB] 2 each PO BID 7 Days #28 tablet
--- NOTE | 2018-07-09 10:10 | Progress Note ---
Assessment and Plan Cultures: 07/05/2018 and blood cultures: No growth at 48 hrs A/P: 58-year-old male with hypertension, hyperlipidemia, admitted with: #1 Severe left hand cellulitis: Etiology unclear, denies any direct trauma. Patient does have a history of prior IVDU, but denies any direct skin popping or current infection being related to IVDU. CT without contrast showed nonspecific cellulitis. slowly improving on IV vancomycin. #2 Polysubstance use: HIV negative and hepatitis C positive Reports last IVDU was several months ago. #3 Chronic Hepatitis C: patient was informed about this result, advised need to quit IVDU and to follow up outpatient with either GI or ID clinic to discuss treatment options. Recs: continue IV vancomycin, target vancomycin trough between 10-15 mg per mL HIV and hep C screening ordered Limb elevation to help with edema control Anticpate discharge on PO Keflex 500 mg QID + PO Bactrim DS 2 tabs BID x 7 days prescriptions on the chart f/u ID clinic 07-17-18 [facility] M: [id number] O:[phone] Subjective Date of service: 07/09/18 Interval history: Patient seen and examined. Denied SOB, fever or rashes. Stated that his left hand continues to be tender, but feels much better. Discharge plan and follow up appointment discussed with patient, verbalized understanding. Objective - Exam Narrative Exam: Constitutional: Alert, cooperative. Mild distress, left hand pain and tenderness Head, Ears, Nose: Normocephalic, atraumatic. External ears, nose normal Eyes: Conjunctivae/corneas clear. No icterus. No ptosis. Neck: Supple, no meningeal signs Oral: dentition poor, no thrush Cardiovascular: S1, S2 normal. Respiratory: Good air entry, clear to auscultation bilaterally GI: Soft, non-tender; bowel sounds normal. No peritoneal signs Musculoskeletal: No pedal edema, no cyanosis. Left hand swelling, moderate tenderness and warmth, no open area or fluctuant swellings Skin: No rash or abscess Hem/Lymphatic: No palpable cervical or supraclavicular nodes. No lymphangitis Psych: Mood ok. Affect normal Neurological: Awake, alert, oriented. No gross abnormality - Constitutional Vitals: Vital Signs Temp Pulse Resp BP Pulse Ox 98.1 F 71 16 172/79 99 07/08/18 17:22 07/08/18 17:22 07/09/18 06:46 07/08/18 17:59 07/08/18 17:22 Temperature -Last 24 Hours Temperature 98.1 F Temperature 98.4 F - Labs CBC & Chem 7: 07/07/18 07:36 07/07/18 04:19
[2018-07-09] MEDS: PEPCID PO SCH (10:50)
[2018-07-09] MEDS: NORVASC PO SCH (10:50)
[2018-07-09] MEDS: SODIUM CHLORIDE FLUSH SYRINGE 10 ML IV SCH (10:51)
[2018-07-09 12:38] VITALS: BP 170/91
== END 2018-07-09 13:50 | disposition home or self-care (01) | DRG 603 ==
LOC: ED 09:28 → 3A 11:39
PROVIDERS: ADMIT Internal Medicine; ATTEND Internal Medicine
DX: L03.114 Cellulitis of left upper limb (principal); E87.1 Hypo-osmolality and hyponatremia; I10 Essential (primary) hypertension; E78.5 Hyperlipidemia, unspecified; F17.210 Nicotine dependence, cigarettes, uncomplicated; F19.90 Other psychoactive substance use, unspecified, uncomplicated; B18.2 Chronic viral hepatitis C; Z95.1 Presence of aortocoronary bypass graft
CPT/HCPCS: 36415; 80048; 80053; 83036; 85025; 85610; 85652; 85730; 86140; 86803; 87040; 87806; G0378; A9270-GY; J1170; J1650; J2405; J2543; J3010; J3370; J7030; J7040; J7050